=== PATIENT | female | born 1940 | race Caucasian/White ===

== ENCOUNTER 2023-09-20 17:34 | Emergency (ER) | payer MEDICARE, SELFPAY ==
[2023-09-20] VITALS (9 sets, daily range): BP systolic 162–238; BP diastolic 55–87; PULSE 50–56; RESP 15–24; TEMP 36.3–36.8; O2SAT 96–100; BMI 37.5
--- NOTE | 2023-09-20 18:41 | EKG12_ITS ---
Test Reason : Blood Pressure : / mmHG Vent. Rate : 056 BPM Atrial Rate : 056 BPM P-R Int : 114 ms QRS Dur : 086 ms QT Int : 462 ms P-R-T Axes : -05 -15 030 degrees QTc Int : 445 ms Sinus bradycardia with marked sinus arrhythmia Otherwise normal ECG Confirmed by Prakash Laurent ([id number]), video editor KENDALL FRAUSTO ([id number]) on 09/21/2023 10:09:47 AM Referred By: JS/[email or web address] Confirmed By:Prakash Laurent
--- NOTE | 2023-09-20 18:41 | EDS_ITS ---
HPI History of Present Illness Chief Complaint: Chest Pain Informant: patient Onset/Context/Timing Onset: Days (2-3) Activity at onset: gradual and rest Timing: Continuous Quality: Positive for Aching Location: Left Chest Worsened By: Breathing Relieved By: Nothing Associated Symptoms: Positive for Dyspnea, Lightheadedness and Palpitations; Negative for Nausea, Vomiting, Diaphoresis, Cough, Fever or Acid Reflux Narrative Narrative: Patient presents with chest pain that has been getting worse over the past 2 to 3 days. Patient states it came on at rest. Patient states it has been constant. Patient describes as aching. Patient states it is over the left lower chest and radiates into her left scapular area. Patient states that sometimes it is worse with taking a deep breath. Patient states that sometimes she feels lightheaded and sometimes she has some palpitations. Patient states she feels short of breath at times as well. Patient denies any nausea or vomiting. Patient denies any diaphoresis. Patient denies any cough or fever. CVD Risk Factors: Positive for Hypertension and Hypercholesterolemia; Negative for Diabetes, Family History 1' </=55 or Smoking PE Risk Factors: Negative for Recent Travel/Surgery, Recent Immobilization, Prior DVT or PE, Cancer or OCP + Smoking + >/=35 PFSH PFSH Medical History (Updated 09/20/23 @ 21:[address] Jorden Reyes DO) GERD (gastroesophageal reflux disease) Hypercholesterolemia Hypertension Intramural aortic hematoma Kidney stones Lumbar stenosis Allergy/AdvReac Type Severity Reaction Status Date / Time Sulfa (Sulfonamide Allergy Intermediate SOB Verified 09/20/23 17:41 Antibiotics) Xbriaht-XPY-AlM Reductase Allergy Mild Rash Verified 09/20/23 17:41 Inhibitor Surgical History (Updated 09/20/23 @ 19:[address] Jorden Reyes DO) History of hysterectomy History of total knee replacement (TKR) Hx of cholecystectomy Social History Smoking Status: Never smoker ROS ROS ED Constitutional Constitutional ED: Denies chills or fever(s) Eyes Eyes: Denies blurry vision or change in vision ENT ENT ED: Denies rhinorrhea or sore throat Cardiovascular Cardiovascular: Reports chest pain and palpitations Respiratory/Chest Respiratory/Chest: Reports dyspnea; Denies cough Gastrointestinal Gastrointestinal: Denies abdominal pain, nausea or vomiting Genitourinary Genitourinary ED: Denies dysuria or hematuria Musculoskeletal Musculoskeletal: Reports back pain; Denies neck pain Integumentary Denies abscess or rash Neurologic Neurologic: Reports headache(s); Denies weakness Allergic/Immunologic Allergic/Immunologic ED: Denies mouth swelling or urticaria EXAM Physical Exam Const Vital Signs: 09/20/23 17:35 09/20/23 17:36 09/20/23 18:46 Temperature 97.4 F L 97.4 F L Temperature Source Temporal Temporal Pulse Rate 55 L 54 L Respiratory Rate 16 16 Respiratory Effort Blood Pressure 162/72 H Blood Pressure Mean 102 Pulse Ox 98 100 Oxygen Delivery Method Room Air Room Air Room Air 09/20/23 18:46 09/20/23 19:05 09/20/23 20:00 Temperature Temperature Source Pulse Rate 52 L 50 L Respiratory Rate 24 H 19 H Respiratory Effort Short of Breath Blood Pressure 179/65 H 171/64 H Blood Pressure Mean 103 99 Pulse Ox 97 97 Oxygen Delivery Method Room Air Room Air 09/20/23 21:00 09/20/23 21:30 09/20/23 21:49 Temperature Temperature Source Pulse Rate 52 L 53 L 56 L Respiratory Rate 15 22 H 19 H Respiratory Effort Blood Pressure 238/84 H 195/73 H 167/87 H Blood Pressure Mean 135 113 113 Pulse Ox 96 97 99 Oxygen Delivery Method Room Air Room Air Positive well nourished, well developed and obese General Appearance ED: well developed and NAD Nutritional Appearance: obese HEENT Reports moist mucous membranes Neck supple and no JVD Chest Wall palpation of chest normal Resp normal respiratory effort and clear to auscultation bilaterally Cardio regular rate and regular rhythm GI soft to palpation, non-tender and non-distended Neuro oriented x3, CN's II-XII intact bilaterally and no sensory deficits noted Sensorium / Orientation: awake and alert Motor Exam: strength 5/5 throughout Psych mental status grossly normal Heart Score History: Slightly/Non-Suspicious ECG: Normal Age: >/= 65 years Risk Factors: 1 or 2 Risk Factors Troponin: </= Normal Limit Score: 3 MDM MDM MDM Narrative Medical decision making narrative: Differential diagnosis includes cardiac dysrhythmia, cardiac ischemia, pneumonia, pneumothorax, electrolyte abnormality, musculoskeletal pain, and anxiety. EKG will be obtained to assess for cardiac dysrhythmia and cardiac ischemia. Chest x-ray will be obtained to assess for pneumonia and pneumothorax. CBC will be obtained to assess for leukocytosis and anemia. Basic metabolic profile will be obtained to assess for electrolyte abnormality and renal function. High-sensitivity troponin will be obtained to assess for cardiac ischemia. Lab Data Attestation: I reviewed the patient's lab results. Lab results narrative: CBC was reviewed there is a slight anemia with a hemoglobin of 10.4 and hematocrit of 32.6. Platelets were slightly low at 144. Basic metabolic profile was reviewed. BUN was 19 and creatinine was 1.23. The remainder was essentially within normal limits. Labs: Laboratory Results - last 24 hr 09/20/23 19:05 WBC 6.1 RBC 3.79 L Hgb 10.4 L Hct 32.6 L MCV 86.0 MCH 27.4 MCHC 31.9 L RDW Std Deviation 50.1 H RDW Coeff of Brianna 16.2 H Plt Count 144 L MPV 11.1 Immature Gran % (Auto) 0.200 Neut % (Auto) 40.3 L Lymph % (Auto) 42.7 H [place] % (Auto) 10.9 H Eos % (Auto) 4.9 Baso % (Auto) 1.0 Absolute Neuts (auto) 2.5 Absolute Lymphs (auto) 2.59 Nucleated RBC % 0 Sodium 140 Potassium 3.5 Chloride 106 Carbon Dioxide 26.0 Anion Gap 8 BUN 19 H Creatinine 1.23 H Estim Creat Clear Calc 33.99 Est GFR (MDRD) Af Amer 54 L Est GFR (MDRD) Non-Af 44 L BUN/Creatinine Ratio 15.4 Glucose 110 H Calcium 9.2 Troponin I High Sens 20 Radiography Chest X-Ray - ED: 1 View, Read by ED Physician, Read by Radiologist and No Acute Disease Diagnostic Testing: Clinical Impression(s) from Imaging Studies Chest X-Ray 09/20/23 19:03 IMPRESSION: No acute radiographic abnormalities. Electronically Signed: Alexys Wagoner MD at 20:05 EDT , Portable 1 view chest x-ray was obtained. On my independent interpretation, tess ng dorado are clear. There is normal cardiac silhouette. Bony thorax is normal. There is no acute process noted. Radiologist also interpreted the x- ray and agrees. EKG Initial EKG: Attestation: I personally reviewed and interpreted this EKG as follows: Interpretation: No Acute Injury Pattern and Sinus Bradycardia (56) Comments: EKG was obtained. On my independent interpretation, it showed a sinus bradycardia with a rate of 56. MO interval, QRS interval, and QTc intervals were all normal. [place] was normal. There are no acute ST or T wave changes. Prior EKG tracings: not available for review Prior: No Prior Treatment and Re-Evaluation :: Patient was ordered aspirin and nitroglycerin. Patient is resting comfortably on reevaluation. Patient no longer has any chest pain. Patient was advised of her findings. Patient has a HEART score of 3. Patient was advised that this is low risk for acute cardiac event. Patient's blood pressure went up to 234/84. Patient was given a dose of hydralazine. Patient's blood pressure improved to 167/87. Patient was instructed to continue to monitor her blood pressures at home. Patient was instructed to follow-up with her primary care physician in 3 to 5 days for reevaluation. Patient understood and was agreeable with the plan. All questions were answered. Discharge Plan Triage Chief Complaint: Chest Pain ED Provider: Jorden Reyes Dx/Rx/DC Orders Clinical Impression: Chest pain, Hypertension Instructions: ED Chest Pain, Uncertain Cause, ED Hypertension, Established Primary Care Provider: ERA OLIVO Referrals: ERA OLIVO [Other] - 3-5 Days Disposition Disposition: Home, Self Care
[2023-09-20] MEDS: Aspirin 81 MG TAB.CHEW 324 MG PO (18:50)
--- NOTE | 2023-09-20 19:03 | RAD_ITS ---
INDICATION: chest pain EXAMINATION/TECHNIQUE: X-RAY - XR Chest 1 View COMPARISON: None. FINDINGS: The lungs are clear. Tortuous and calcified thoracic aorta. The heart is mildly enlarged. No pleural effusion or pneumothorax. Degenerative changes of the thoracic spine. RAD/Chest 1 View (Portable) IMPRESSION: No acute radiographic abnormalities. Electronically Signed: Alexys Wagoner MD at 20:05 EDT ,
[2023-09-20 19:10] LABS: Absolute Lymphocyte Count 2.59 X10^3/uL (0.83-4.51); Absolute Neutrophil Count 2.5 X10^3/uL (2.0-7.7); Basophil# 0.06 X10^3/uL; Eosinophils% 4.9 % (0-5); Hematocrit 32.6 % (37-47); Hemoglobin 10.4 g/dL (12.0-15.0); Lymphocyte # 2.59 X10^3/ul (0.83-4.51); Lymphocyte % 42.7 % (19-41); Mean Corp Hgb Conc 31.9 g/dL (32-36); Mean Corpuscular Hgb 27.4 pg (27.0-32.0); Mean Platelet Vol. 11.1 fl (6.2-12.0); Monocyte# 0.66 X10^3/uL; Monocyte% 10.9 % (0-10); NRBC Flagged by Analyzer 0 % (0-5); Neutrophil # 2.45 X10^3/uL (2.7-7.7); Neutrophil % 40.3 % (47-70); Platelet Count 144 K/mm3 (150-450); RBC Distribution Width CV 16.2 % (11.6-14.6); RBC Distribution Width SD 50.1 fl (35.1-43.9); Red Blood Count 3.79 M/mm3 (4.2-5.4); White Blood Count 6.1 K/mm3 (4.4-11.0)
[2023-09-20 19:33] LABS: Anion Gap 8 (5-15); BUN 19 mg/dL (7-18); BUN/Creat Ratio 15.4 RATIO (10-20); Calcium,Total 9.2 mg/dL (8.5-10.1); Chloride 106 mmol/L (98-107); Creatinine, Serum 1.23 mg/dL (0.55-1.02); EST Glomerular Filtration Rate 44 mL/min (>60); Est Glom Filt Rate - Afr Amer 54 mL/min (>60); Estimated Creatinine Clearance 33.99 ml/min; Glucose 110 mg/dL (74-106); Potassium 3.5 mmol/L (3.5-5.1); Sodium Level 140 mmol/L (136-145); Troponin-I HS (w/2H Reflex) 20 pg/mL (3.0-54.0)
[2023-09-20 21:08] LABS: Reflex Troponin-HS? (from REC) Y
[2023-09-20] MEDS: hydrALAZINE 20 MG/ML Vial 10 MG IV (21:29)
== END 2023-09-20 22:40 | disposition home or self-care (01) ==
PROVIDERS: Emergency Provider Emergency Medicine; Visit Provider Emergency Medicine
DX: R07.9 Chest pain, unspecified (principal); I10 Essential (primary) hypertension; R06.00 Dyspnea, unspecified; E66.9 Obesity, unspecified
CPT/HCPCS: 71045; 80048; 84484; 85025; 93005; 96374; 99283; A4216

== ENCOUNTER 2024-05-06 16:54 | Emergency (ER) | payer MEDICARE, SELFPAY ==
[2024-05-06 16:56] VITALS: BP 137/62; PULSE 123; RESP 16; TEMP 36.6; O2SAT 97; BMI 36.5
--- NOTE | 2024-05-06 17:05 | EKG12_ITS ---
Test Reason : ABD PAIN Blood Pressure : */* mmHG Vent. Rate : 54 BPM Atrial Rate : 54 BPM P-R Int : 132 ms QRS Dur : 82 ms QT Int : 438 ms P-R-T Axes : 44 -23 -3 degrees QTcB Int : 415 ms Sinus bradycardia with marked sinus arrhythmia Otherwise normal ECG Confirmed by ALLY MARTINEZ, EVELYN ([id number]), script editor KENDALL FRAUSTO ([id number]) on 05/08/2024 12:45:33 PM Referred By: Confirmed By: EVELYN CANALES MD
[2024-05-06 17:40] LABS: Absolute Lymphocyte Count 2.47 X10^3/uL (0.83-4.51); Absolute Neutrophil Count 3.6 X10^3/uL (2.0-7.7); Basophil# 0.09 X10^3/uL; Basophil% 1.2 % (0-1); Eosinophil# 0.21 X10^3/uL; Eosinophils% 2.9 % (0-5); Hematocrit 36.3 % (37-47); Hemoglobin 11.8 g/dL (12.0-15.0); Lymphocyte # 2.47 X10^3/ul (0.83-4.51); Lymphocyte % 34.1 % (19-41); Mean Corp Hgb Conc 32.5 g/dL (32-36); Mean Corpuscular Hgb 28.4 pg (27.0-32.0); Mean Corpuscular Volume 87.3 fL (81-99); Mean Platelet Vol. 11.5 fl (6.2-12.0); Monocyte# 0.86 X10^3/uL; Monocyte% 11.9 % (0-10); NRBC Flagged by Analyzer 0 % (0-5); Neutrophil # 3.58 X10^3/uL (2.7-7.7); Neutrophil % 49.5 % (47-70); Platelet Count 156 K/mm3 (150-450); RBC Distribution Width CV 14.6 % (11.6-14.6); RBC Distribution Width SD 46.5 fl (35.1-43.9); Red Blood Count 4.16 M/mm3 (4.2-5.4); White Blood Count 7.2 K/mm3 (4.4-11.0)
--- NOTE | 2024-05-06 17:44 | CT_ITS ---
EXAM: CT ABDOMEN AND PELVIS WITH INTRAVENOUS CONTRAST CLINICAL INDICATION: upper abd pain TECHNIQUE: Helically acquired images were obtained of the abdomen and pelvis with intravenous contrast. This CT exam was performed using one or more of the following dose reduction techniques: automated exposure control, adjustment of the mA and/or kV according to patient size, and/or use of iterative reconstruction technique. CONTRAST: IV 100mL Isovue-370 COMPARISON: No relevant prior studies available. FINDINGS: LOWER THORAX: Unremarkable. Lung bases are clear. No cardiomegaly. No significant pericardial effusion. ABDOMEN: LIVER: Unremarkable. Homogeneous. No focal mass. GALLBLADDER AND BILE DUCTS: Unremarkable. No calcified gallstones. No gallbladder distention or wall edema. No intra- or extrahepatic biliary ductal dilation. PANCREAS: Unremarkable. No focal cystic or solid mass. SPLEEN: Unremarkable. Normal size without focal cystic or solid mass. ADRENALS: Unremarkable. No nodules. KIDNEYS AND URETERS: Unremarkable. Normal renal size and position. No hydronephrosis. STOMACH AND BOWEL: Duodenal diverticulum. No evidence of bowel obstruction or inflammatory change. No focal inflammatory change. PELVIS: APPENDIX: No evidence of acute appendicitis. BLADDER: Unremarkable. REPRODUCTIVE: Unremarkable as visualized. No mass. ABDOMEN and PELVIS: INTRAPERITONEAL SPACE: Unremarkable. No ascites or other fluid collection. No free air. BONES/JOINTS: Mild degenerative changes of the hips. No suspicious lytic or blastic abnormality. SOFT TISSUES: Unremarkable. No discrete abdominal or pelvic wall hernia. VASCULATURE: Unremarkable. Abdominal aorta is normal in caliber. LYMPH NODES: Unremarkable. No enlarged lymph nodes. CT/Abdomen/Pelvis W IV Cont ONLY IMPRESSION: No acute findings in the abdomen or pelvis. Electronically Signed: Kalie Dorsey MD at 18:58 EST Reading Location ID and State: [id number] / Tel , Service support ,
[2024-05-06 17:53] LABS: ALB/GLOB Ratio 1.3 RATIO (0.9-2.4); AST(SGOT) 25 U/L (15-37); Alanine Aminotransfer ALT/SGPT 16 U/L (13-56); Albumin, Serum 3.6 g/dL (3.2-5.0); Alkaline Phosphatase 74 U/L (45-117); Anion Gap 6 (5-15); BUN 26 mg/dL (7-18); BUN/Creat Ratio 18.1 RATIO (10-20); Chloride 108 mmol/L (98-107); Creatinine, Serum 1.44 mg/dL (0.55-1.02); EST Glomerular Filtration Rate 37 mL/min (>60); Est Glom Filt Rate - Afr Amer 45 mL/min (>60); Estimated Creatinine Clearance 28.61 ml/min; Globulin 2.8 g/dL (2.2-4.2); Glucose 112 mg/dL (74-106); Lipase 49 U/L (13-75); Potassium 4.3 mmol/L (3.5-5.1); Protein, Total 6.4 g/dL (6.4-8.2); Sodium Level 142 mmol/L (136-145); Troponin-I HS 16 pg/mL (3.0-54.0)
[2024-05-06 17:55] LABS: Mucous, Urine 0 SEEN /hpf (<or=2+)
--- NOTE | 2024-05-06 18:08 | EX.ED.DYSGE1 ---
HPI History of Present Illness Chief Complaint: Abd Pain Narrative Narrative: Patient is a 83-year-old female with past medical history of hypertension hypercholesteremia, intramural aortic hematoma, GERD who presents to the emergency department chief complaint of abdominal pain. Patient states on Wednesday she started develop left upper quadrant abdominal pain. She states that she day before was leaning over doing a puzzle at the card table and states that she thought that the pain was from this however she noted that has progressively worsened prompting her to come here for further evaluation management. States that when the pain is at its worst it is a 8 out of 10. Patient states that currently her pain is a 4 out of 10 and notes that she does have the history of the intramural aortic hematoma and was concerned about this again prompting her to come here for further evaluation management. Patient states that her stools been normal color brown in nature no dark tarry stools no blood in her stool. Patient states that she has had multiple abdominal surgeries in the past including cholecystectomy, appendectomy, total hysterectomy. Patient states that she is passing gas. PFSH PFSH Medical History GERD (gastroesophageal reflux disease) Hypertension Hypercholesterolemia Kidney stones Intramural aortic hematoma Lumbar stenosis Home Medications ?Medication ?Instructions ?Recorded ?Last Taken ?Type cephalexin 500 mg capsule 500 mg PO Q12H 5 days #10 caps 05/06/24 Unknown Rx hyoscyamine sulfate 0.125 mg 0.125 mg PO Q6H PRN dyspepsia 3 05/06/24 Unknown Rx tablet (Levsin) days #12 tabs ondansetron 4 mg disintegrating 4 mg PO Q6H PRN nausea and 05/06/24 Unknown Rx tablet vomiting #20 tabs Allergy/AdvReac Type Severity Reaction Status Date / Time Sulfa (Sulfonamide Allergy Intermediate SOB Verified 05/06/24 16:56 Antibiotics) Gshuhow-ZSB-QtM Reductase Allergy Mild Rash Verified 05/06/24 16:56 Inhibitor Surgical History History of total knee replacement (TKR) Hx of cholecystectomy History of hysterectomy Social History Smoking Status: Never smoker ROS ROS ED ROS Narrative Constitutional: Denies any fevers, chills, headaches, lightheadedness, dizziness Eyes: Denies change in vision double vision blurry vision Cardiovascular: Denies chest pain or palpitations Respiratory: Denies coughing wheezing shortness of breath Abdomen: Complains of abdominal pain as noted above denies nausea vomiting diarrhea : Denies any pain phonation, hematuria, polyuria Neurological: Denies numbness, weakness, tingling Musculoskeletal: Denies back pain Skin: Denies rashes or lesions EXAM Physical Exam Narrative Exam Narrative: General: Patient lying in bed did appear to be uncomfortable secondary to her abdominal pain Head: Atraumatic, normocephalic Eyes: PERRL bilaterally, EOMI bilateral, no conjunctival injection noted Neck: Soft, supple, trachea midline Cardiovascular: Regular rate and rhythm no murmurs gallops rubs noted Respiratory: Clear to auscultation bilaterally no rales rhonchi or wheezes noted Abdomen: Soft, nondistended, tender to palpation in the left upper quadrant in the epigastric region no rebound or guarding on exam, bowel sounds present x 4 Extremities: +5/5 strength noted in the bilateral upper and lower extremities, radial pulses +2/4 in the bilateral upper extremities Neurological: Patient is following commands knew that she was at [facility] years 2023 Skin: Warm, dry, intact Const Vital Signs: 05/06/24 16:56 Temperature 98 F Temperature Source Oral Pulse Rate 123 H Respiratory Rate 16 Blood Pressure 137/62 H Blood Pressure Mean 87 Pulse Ox 97 Oxygen Delivery Method Room Air MDM MDM MDM Narrative Medical decision making narrative: Patient is a 83-year-old female who presents to the emergency department the chief complaint of abdominal pain. Patient will have a workup performed here on the differential diagnose includes but not limited to pancreatitis, viral gastroenteritis, small bowel obstruction, intramural aortic hematoma that is worsening. Once workup is obtained reviewed she will be reevaluated. Patient CBC reviewed and showed no evidence of leukocytosis white blood count normal at 10.2, hemoglobin stable 11.8, platelet count was noted be 156. Patient sodium was noted to be normal at 142, potassium normal at 4.3, creatinine was 1.44 which is slightly elevated from her baseline around 1.23. Patient's AST and ALT are 25 and 16 respectively. Patient's troponin was noted be normal at 16. Patient's EKG was reviewed by myself which showed sinus bradycardia with a rate of 54 bpm. Patient's EKG from 09/20/2023 was reviewed as well which was similar in appearance at that point time as today's EKG. Patient's urinalysis showed 100 leukocyte esterase negative nitrates, greater than 100 white cells and 3+ bacteria there is concern for contaminated sample as there is 10-25 squamous epithelial cells noted. She was given a gram Rocephin and this was sent for culture. She will be prescribed Keflex and was advised to follow-up on the urine culture results with her primary care physician. Patient's CT abdomen pelvis with IV contrast was reviewed and showed no acute findings in the abdomen or pelvis. I did discuss results with patient and family bedside they are advised to return with worsening symptoms or other concerns. Patient will be prescribed Bentyl and Zofran on top of the Keflex. She was encouraged return with worsening symptoms or any concerns. She is agreeable this plan she does feel better she would like to go home all question concerns answered she was discharged in the stable condition. Lab Data Labs: Laboratory Results - last 24 hr 05/06/24 05/06/24 05/06/24 17:12 17:41 17:46 WBC 7.2 RBC 4.16 L Hgb 11.8 L Hct 36.3 L MCV 87.3 MCH 28.4 MCHC 32.5 RDW Std Deviation 46.5 H RDW Coeff of Brianna 14.6 Plt Count 156 MPV 11.5 Immature Gran % (Auto) 0.400 Neut % (Auto) 49.5 Lymph % (Auto) 34.1 [place] % (Auto) 11.9 H Eos % (Auto) 2.9 Baso % (Auto) 1.2 H Absolute Neuts (auto) 3.6 Absolute Lymphs (auto) 2.47 Nucleated RBC % 0 Sodium 142 Potassium 4.3 Chloride 108 H Carbon Dioxide 28.0 Anion Gap 6 BUN 26 H Creatinine 1.44 H Estim Creat Clear Calc 28.61 Est GFR (MDRD) Af Amer 45 L Est GFR (MDRD) Non-Af 37 L BUN/Creatinine Ratio 18.1 Glucose 112 H Lactic Acid 0.8 Calcium 9.0 Total Bilirubin 0.70 AST 25 ALT 16 Alkaline Phosphatase 74 Troponin I High Sens 16 Total Protein 6.4 Albumin 3.6 Globulin 2.8 Albumin/Globulin Ratio 1.3 Lipase 49 Urine Color Straw Urine Clarity Sl. Cloudy Urine pH 7.0 Ur Specific [place] 1.010 Urine Protein Negative Urine Glucose (UA) Normal Urine Ketones Negative Urine Occult Blood 10 H Urine Nitrite Negative Urine Bilirubin Negative Urine Urobilinogen 4 H Ur Leukocyte Esterase 100 H Urine RBC 5-10 SEEN Urine WBC >100 SEEN Ur Squamous Epith Cells 10-25 SEEN Urine Bacteria 3+ Urine Mucus 0 SEEN Radiography Diagnostic Testing: Clinical Impression(s) from Imaging Studies Abdomen/Pelvis CT 05/06/24 17:44 IMPRESSION: No acute findings in the abdomen or pelvis. Electronically Signed: Kalie Dorsey MD at 18:58 EST Reading Location ID and State: [id number] / Tel , Service support , Discharge Plan Triage Chief Complaint: Abd Pain ED Provider: Seferino Cha Dx/Rx/DC Orders Clinical Impression: Abdominal pain, Urinary tract infection Prescriptions: New hyoscyamine sulfate [Levsin] 0.125 mg tablet 0.125 mg PO Q6H PRN (Reason: dyspepsia) 3 Days Qty: 12 0RF ondansetron 4 mg tablet,disintegrating 4 mg PO Q6H PRN (Reason: nausea and vomiting) Qty: 20 0RF cephalexin 500 mg capsule 500 mg PO Q12H 5 Days Qty: 10 0RF Primary Care Provider: Care Physician,No Primary Referrals: Care Physician,No Primary [Primary Care Provider] - Neena Herzog MD [Med Staff - Manager Payment] - Activity Restrictions/Additional Instructions: Follow up with your primary care physician in the outpatient setting and follow-up on your urine culture results. Take antibiotics as prescribed. Use other prescriptions as prescribed. Return with worsening symptoms or any other concerns. Print Language: Irish Disposition Disposition: Home, Self Care
[2024-05-06 18:21] LABS: Lactic Acid 0.8 mmol/L (0.4-1.9)
[2024-05-06 18:30] LABS: Color, Urine Straw (Yellow); Glucose, Dipstick Normal (Normal); Ketone-Dipstick Negative (Negative); Leukocyte Esterase-Dipstick 100 /ul (Negative); Nitrite-Dipstick Negative (Negative); Occult Blood-Urine 10 /ul (Negative); Protein-Dipstick Negative (Negative); Urine Bilirubin Dipstick Negative (Negative); Urine Clarity Sl. Cloudy (Clear); Urine Urobilinogen 4 mg/dl (Normal)
[2024-05-06 18:35] LABS: Squamous Epithelial Cells - UA 10-25 SEEN /hpf (5-10); White Blood Cells >100 SEEN /hpf (0-5)
[2024-05-06 18:38] LABS: Bacteria 3+ /hpf (None Seen); Red Blood Cells-Urine 5-10 SEEN /hpf (0-5)
[2024-05-06 19:23] VITALS: BP 123/77; PULSE 57; RESP 18; O2SAT 98
[2024-05-06] MEDS: Ceftriaxone 1 GM/50 ML BAG IV (19:30)
[2024-05-06 20:07] VITALS: BP 131/57; PULSE 51; RESP 18; TEMP 36.6; O2SAT 96
== END 2024-05-06 20:08 | disposition home or self-care (01) ==
PROVIDERS: Emergency Provider Emergency Medicine; Visit Provider Emergency Medicine
DX: N39.0 Urinary tract infection, site not specified (principal)
CPT/HCPCS: 74177; 80053; 81001; 83605; 83690; 84484; 85025; 87086; 87088; 87186; 93005; 96365; 99282; Q9967; A4216